=== PATIENT | male | born 1995 | race Caucasian/White ===

== ENCOUNTER 2021-11-20 15:21 | Emergency (ER) | payer SELFPAY ==
[2021-11-20 15:22] VITALS: BP 129/94; PULSE 64; RESP 15; TEMP 36.6; O2SAT 100; BMI 18.7
--- NOTE | 2021-11-20 15:37 | EDS_ITS ---
HPI History of Present Illness Chief Complaint: Dental Detail of Chief Complaint: Facial swelling and pain Informant: patient Onset/Context/Timing Onset: Yesterday Context: Sudden Onset Timing: Continuous Quality: Pain and swelling Location: Left maxillary region Current Severity: Mild Maximum Severity: Moderate Worsened by: Showing Relieved by: - (Nothing) Associated Symptoms Assocated Symptom - Dental: face swelling; Negative for fever, jaw swelling, cold sensitivity or hot sensitivity Narrative Narrative: Patient is a 26-year-old male who states he is on a waiting list to see a dentist. He presents because of facial pain and swelling. He states his teeth are bad. He denies history of medic fever, heart murmur, mitral valve prolapse, SBE or being immune suppressed. He denies rash. He denies joint pain. He denies difficulty opening closing his mouth completely. Prior similar symptoms: No Recent Illness/Hospitalization: No PFSH PFSH Medical History no medical history no medical history Home Medications hydrocodone-acetaminophen 1 tab PO Q6H PRN PRN 3 Days #10 tablet 11/20/21 [Rx Last Taken Unknown] naproxen 500 mg PO BID #14 tab 11/20/21 [Rx Last Taken Unknown] penicillin V potassium 500 mg PO 4X/DAY #40 tab 11/20/21 [Rx Last Taken Unknown] Allergy/AdvReac Type Severity Reaction Status Date / Time No Known Allergies Allergy Verified 11/20/21 15:22 Surgical History no surgical history no surgical history Social History (Updated 11/20/21 @ 15:[address] Wilmer Tompkins MD) household members: other substance use type: does not use ROS ROS ED Constitutional Constitutional ED: Denies chills, fever(s), subjective, sweats or weight loss Eyes Eyes: Denies blurry vision, change in vision or other ENT ENT ED: Reports other Details: Positive dental pain and facial pain ; Denies ear pain, rhinorrhea or sore throat Cardiovascular Cardiovascular: Denies chest pain or palpitations Respiratory/Chest Respiratory/Chest: Denies dyspnea Gastrointestinal Gastrointestinal: Denies nausea or vomiting Integumentary Denies abscess or rash Neurologic Neurologic: Denies headache(s), paresthesias or weakness Hematologic/Lymphatic Hematologic/Lymphatic: Denies easy bleeding or easy bruising Allergic/Immunologic Allergic/Immunologic ED: Denies mouth swelling or tongue swelling EXAM Physical Exam Const Vital Signs: 11/20/21 15:22 Temperature 97.8 F Temperature Source Temporal Pulse Rate 64 Respiratory Rate 15 Blood Pressure 129/94 H Blood Pressure Mean 105 Pulse Ox 100 Oxygen Delivery Method Room Air Positive well nourished and well developed General Appearance ED: well developed and NAD HEENT Reports TM's clear Negative for trauma or tenderness Face and Sinus: Negative for sinuses nontender Tympanic Membrane ED: Yes TM's clear Mouth ED: Yes oral and palatal mucosa normal, Yes lips normal, Yes tongue normal, Yes salivary gland normal, No mouth trauma, No oral and palatal mucosa abnormal and No salivary gland abnormal Mouth: oral and palatal mucosa normal, lips normal, tongue normal, salivary gland normal, No mouth trauma, No oral and palatal mucosa abnormal and No s alivary gland abnormal Teeth and Gingiva: abnormal tooth and associated gingiva, caries, gingiva abnormal, poor dentition and teeth discoloration Throat: posterior oropharynx normal Eyes PERRL and EOMs intact bilaterally General Eye ED: Negative for pale conjunctiva or scleral icterus Neck no lymphadenopathy, supple and no JVD General: normal visual inspection Lymph Lymphatic: no lymphadenopathy noted Resp normal respiratory effort and clear to auscultation bilaterally Cardio regular rate, regular rhythm, S1 normal heart sound, S2 normal heart sound and no murmurs Neuro oriented x3 and CN's II-XII intact bilaterally Sensorium / Orientation: alert Psych mental status grossly normal Skin no rashes or lesions noted MDM MDM MDM Narrative Medical decision making narrative: Patient has significant dental pathology involving tooth #11, 12 and 16. There is no fluctuance above the teeth. There is tenderness in the area. There is facial swelling without erythema. There is no trismus. There is no change in voice. Patient has dental abscess. He was treated with NSAID, opiate analgesia and antibiotic. Discharge Plan Triage Chief Complaint: Dental ED Provider: Wilmer Tompkins Dx/Rx/DC Orders Clinical Impression: Abscess, dental, Dental caries extending into pulp Prescriptions: New hydrocodone-acetaminophen [hydrocodone-acetaminophen] 1 TABLET tablet 1 tab PO Q6H PRN PRN (Reason: Pain) 3 Days Qty: 10 RF: 0 penicillin V potassium 500 MG tablet 500 mg PO 4X/DAY Qty: 40 RF: 0 naproxen 500 MG tablet 500 mg PO BID Qty: 14 RF: 0 Primary Care Provider: Care Physician,No Primary Referrals: Care Physician,No Primary [Primary Care Provider] - Dentist,Your [STAFF PHYSICIAN] - 1-2 Weeks Disposition Disposition: Home, Self Care
[2021-11-20] MEDS: Penicillin Vk 250 MG Tablet 500 MG PO (16:02)
[2021-11-20] MEDS: HYDROcodone Bitartrate/Apap 5/325 Tablet PO (16:02)
[2021-11-20] MEDS: Naproxen 250 MG Tablet 500 MG PO (16:02)
== END 2021-11-20 16:04 | disposition home or self-care (01) ==
PROVIDERS: Emergency Provider Emergency Medicine; Visit Provider Emergency Medicine
DX: K04.7 Periapical abscess without sinus (principal); K02.9 Dental caries, unspecified
CPT/HCPCS: 99283

== ENCOUNTER 2023-07-17 22:36 | Emergency (ER) | payer SELFPAY ==
[2023-07-17 22:36] VITALS: BP 131/95; PULSE 50; RESP 16; TEMP 36.3; O2SAT 100; BMI 19.9
--- NOTE | 2023-07-17 23:05 | RAD_ITS ---
INDICATION: injury/pain EXAMINATION/TECHNIQUE: X-RAY - RIGHT XR Elbow Min 3 Views COMPARISON: FINDINGS: No acute fracture or dislocation. No destructive bone changes. Joint spaces are well-maintained. Normal alignment. Soft tissues are unremarkable. No radiopaque foreign body or soft tissue gas. RAD/Elbow min 3 Views IMPRESSION: Negative. Electronically Signed: Savannah Purcell MD at 23:40 EST Reading Location ID and State: [id number] / Tel , Service support ,
--- NOTE | 2023-07-18 00:06 | EX.ED.UPPERE ---
HPI History of Present Illness Chief Complaint: Upper Extremity Injury Informant: patient Onset/Context/Timing Onset: Today Context: Gradual Onset (After injury) Timing: Continuous Quality of Pain: Aching Location: Right elbow Current Severity: Severe Maximum Severity: Severe Worsened by: Movement of the elbow Relieved by: Remaining still Associated Symptoms Associated Symptoms: Negative for Parasthesia or Weakness Narrative Narrative: Patient states he was playing basketball, he was reaching his arm out when another player ran by him very quickly, forcing his extended right elbow into hyperextension type mechanism. He had more pain later than he did right away. Now he is having trouble moving it because of the pain and swelling. He points to the olecranon process and surrounding areas as well as laterally. [id number]. No numbness. No other injury. PFSH PFSH Medical History no medical history no medical history Home Medications hydrocodone-acetaminophen 5-325mg 5mg-325mg 1 tab PO Q6H PRN PRN Pain 3 days #10 TABLETS 11/20/21 [Rx Last Taken Unknown] naproxen 500 mg tablet 500 mg PO BID #14 tabs 11/20/21 [Rx Last Taken Unknown] penicillin V potassium 500 mg tablet 500 mg PO 4X/DAY #40 tabs 11/20/21 [Rx Last Taken Unknown] naproxen 500 mg tablet 500 mg PO BID PRN #14 tabs 07/18/23 [Rx Last Taken Unknown] Allergy/AdvReac Type Severity Reaction Status Date / Time No Known Allergies Allergy Verified 11/20/21 15:22 Social History household members: other Smoking Status: Never smoker substance use type: does not use ROS ROS ED Constitutional Constitutional ED: Denies chills or fever(s) Musculoskeletal Musculoskeletal: Reports extremity pain; Denies neck pain Integumentary Denies Abrasions, rash or wounds Neurologic Neurologic: Denies paresthesias or weakness EXAM Physical Exam Const Vital Signs: 07/17/23 22:36 Temperature 97.3 F L Temperature Source Temporal Pulse Rate 50 L Respiratory Rate 16 Blood Pressure 131/95 H Blood Pressure Mean 107 Pulse Ox 100 Oxygen Delivery Method Room Air Positive well nourished and well developed General Appearance ED: well developed and NAD Neck full ROM and supple Back/Spine normal ROM and normal to inspection Extremity Extremity Narrative: Limited range of motion right elbow due to pain. Able to extend but not fully. Most area of the tenderness is laterally about the radial head but he does not have pain with pronation and supination, just flexion and extension. No other bony prominence tenderness. Able to extend and flex the wrist, fingers without any pain. Neuro oriented x3, no focal motor deficits and no sensory deficits noted Sensorium / Orientation: alert Psych mental status grossly normal and thought process normal Skin no wounds Rashes: no rashes MDM MDM MDM Narrative Medical decision making narrative: Three-view x-ray series of the right elbow on my interpretation negative for acute fracture radiology in agreement. Will give him a sling, and have him follow-up with orthopedics due to potential for soft tissue ligamentous injury. Prescribed anti-inflammatories. Radiography Diagnostic Testing: Clinical Impression(s) from Imaging Studies Elbow X-Ray 07/17/23 23:05 IMPRESSION: Negative. Electronically Signed: Savannah Purcell MD at 23:40 EST Reading Location ID and State: [id number] / Tel , Service support , Discharge Plan Triage Chief Complaint: Upper Extremity Injury ED Provider: Lorenzo Diaz Dx/Rx/DC Orders Clinical Impression: Sprain of elbow, left Instructions: ED Sprain, Elbow Prescriptions: New naproxen 500 mg tablet 500 mg PO BID PRN Qty: 14 0RF No Action hydrocodone-acetaminophen [hydrocodone-acetaminophen] 1 TABLET tablet 1 tab PO Q6H PRN PRN (Reason: Pain) 3 Days Qty: 10 0RF penicillin V potassium 500 MG tablet 500 mg PO 4X/DAY Qty: 40 0RF naproxen 500 MG tablet 500 mg PO BID Qty: 14 0RF Primary Care Provider: Care Physician,No Primary Referrals: Jame Root MD [Med Staff - Active Staff] - 5-7 Days Disposition Disposition: Home, Self Care
[2023-07-18] MEDS: Naproxen 250 MG Tablet 500 MG PO (00:21)
== END 2023-07-18 00:26 | disposition home or self-care (01) ==
PROVIDERS: Emergency Provider Emergency Medicine; Referring Provider Emergency Medicine; Visit Provider Emergency Medicine
DX: S53.402A Unspecified sprain of left elbow, initial encounter (principal); X58.XXXA Exposure to other specified factors, initial encounter; Y93.67 Activity, basketball
CPT/HCPCS: 73080; 99283